=== PATIENT | female | born 1935 ===

== ENCOUNTER 2016-05-21 07:40 | Inpatient (IN) | payer MEDICAID, MEDICARE ==
[2016-05-21 07:45] VITALS: BMI 26.5
--- NOTE | 2016-05-21 08:21 | C.PDOC ---
History Of Present Illness 81-year-old female, presents to the emergency department accompanied by son who is acting as historian, with complaints of weakness. Son states that patient has chronic left sided hemiplegia, and post right knee repair last year. Son states that patient began having pain and discomfort after being on a flight from [place] for several hours. Patient is A&Ox3, and "seems more weak since her trip" as per son. No vomiting, slurred speech. All other Hx limited. Time Seen by Provider: 05/21/16 07:57 Chief Complaint (Nursing): Shortness Of Breath History Per: Family Current Symptoms Are (Timing): Still Present Past Medical History Reviewed: Historical Data, Nursing Documentation, Vital Signs Vital Signs: Last Vital Signs Temp 97.4 F L 05/21/16 08:06 Pulse 85 05/21/16 11:20 Resp 18 05/21/16 11:20 BP 104/65 05/21/16 11:20 Pulse Ox 100 05/21/16 15:41 Family History: States: Unknown Family Hx Review Of Systems Review Of Systems: ROS cannot be obtained secondary to pt's inabilty to answer questions. Constitutional: Positive for: Weakness Physical Exam - Physical Exam Appears: Non-toxic, No Acute Distress Skin: Warm, Dry, Other ( PRESSURE ULCER SACRUM STAGE 4, NO ACTIVE INFXN) Eye(s): bilateral: Normal Inspection, PERRL Nose: Normal Oral Mucosa: Moist Neck: Normal ROM Cardiovascular: Rhythm Regular Respiratory: No Accessory Muscle Use, No Rales, No Rhonchi, No Wheezing Neurological/Psych: Other (CHRONIC L HEMIPLEGIA; APPROPRIATE RESPONSE TO SON) ED Course And Treatment - Laboratory Results Result Diagrams: 05/21/16 08:35 05/21/16 08:35 ECG: Interpreted By Me ECG Rhythm: Sinus Rhythm ECG Interpretation: Normal Rate From EC O2 Sat by Pulse Oximetry: 100 Pulse Ox Interpretation: Normal - Radiology CXR: Interpreted by Me CXR Interpretation: Yes: No Acute Disease Reevaluation Time: 10:18 Reassessment Condition: Unchanged - Physician Consult Information Time Consulting Physician Contacted: 10:18 Physician Contacted: Epi Lindsey Disposition Counseled Patient/Family Regarding: Studies Performed, Diagnosis - Disposition Disposition: HOSPITALIZED Disposition Time: 10:19 Condition: STABLE - POA Present On Arrival: Poor Glycemic Control, Pressure Ulcer - Clinical Impression Clinical Impression: Chronic pain, Pressure ulcer, Weakness generalized - Scribe Statement The provider has reviewed the documentation as recorded by the Scribe Provider Attestation: Cassie Atkins All medical record entries made by the Scribe were at my direction and personally dictated by me. I have reviewed the chart and agree that the record accurately reflects my personal performance of the history, physical exam, medical decision making, and the department course for this patient. I have also personally directed, reviewed, and agree with the discharge instructions and disposition. Decision To Admit - Pt Status Changed To: Hospital Disposition Of: Observation - . Bed Request Type: Regular Admitting Physician: Epi Lindsey Patient Diagnosis: Chronic pain, Pressure ulcer, Weakness generalized
[2016-05-21] MEDS ORDERED: Sodium Chloride 0.9% 1,000 ML IV ONE (08:27)
[2016-05-21 08:39] LABS: BASO # 0.1 K/uL (0.0-0.2); BASO % 1.2 % (0.0-2.0); EOS # 0.4 K/uL (0.0-0.7); EOS % 3.6 % (0.0-4.0); HEMATOCRIT 40.9 % (34.0-47.0); LYMPH # 1.7 K/uL (1.0-4.3); LYMPH % 17.7 % (20.0-40.0); MEAN CORPUSCULAR HEMOGLOBIN 28.1 pg (27.0-31.0); MEAN CORPUSCULAR HGB CONC 32.7 g/dL (33.0-37.0); MEAN PLATELET VOLUME 7.1 fL (7.2-11.7); MONO # 0.9 K/uL (0.0-0.8); MONO % 8.9 % (0.0-10.0); WHITE BLOOD COUNT 9.7 K/uL (4.8-10.8)
[2016-05-21 08:51] LABS: VENOUS BLOOD GAS BASE EXCESS -0.2 mmol/L (0.0-2.0); VENOUS BLOOD GAS PCO2 47 mmHg (40-60); VENOUS BLOOD PH 7.35 (7.32-7.43)
[2016-05-21 09:05] LABS: CHLORIDE 103 mmol/L (98-107); SODIUM 142 mmol/L (132-148)
[2016-05-21 09:07] LABS: GFR AFRICAN-AMERICAN > 60
[2016-05-21 09:08] LABS: ALKALINE PHOSPHATASE 107 U/L (38-126); ALT/SGPT 10 U/L (9-52); AST/SGOT 33 U/L (14-36); BILIRUBIN,TOTAL 1.3 mg/dL (0.2-1.3); BLOOD UREA NITROGEN 11 mg/dL (7-17); CARBON DIOXIDE 24 mmol/L (22-30); GLUCOSE,RANDOM 92 mg/dL (65-105); TOTAL PROTEIN 7.5 g/dL (6.3-8.3)
--- NOTE | 2016-05-21 09:36 | CT ---
PROCEDURE: CT HEAD WITHOUT CONTRAST. HISTORY: AMS COMPARISON: None available. TECHNIQUE: Axial computed tomography images were obtained through the head/brain without intravenous contrast. Radiation dose: Total exam DLP = 883.50 MGy-cm. This CT exam was performed using one or more of the following dose reduction techniques: Automated exposure control, adjustment of the mA and/or kV according to patient size, and/or use of iterative reconstruction technique. FINDINGS: HEMORRHAGE: No intracranial hemorrhage. BRAIN: Diffuse atrophy with prominence of the ventricles and sulci noted. No mass effect or edema. Intracranial atherosclerotic calcifications. 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 Additional regions of scattered white matter hypodensities, which are nonspecific, but often seen with chronic microvascular ischemic disease. VENTRICLES: No hydrocephalus. CALVARIUM: Unremarkable. PARANASAL SINUSES: Unremarkable as visualized. No significant inflammatory changes. MASTOID AIR CELLS: Unremarkable as visualized. No inflammatory changes. OTHER FINDINGS: None. 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 Additional regions of scattered white matter hypodensities, which are nonspecific, but often seen with chronic microvascular ischemic disease. Please note that MRI with diffusion imaging is more sensitive in the detection of acute ischemic event. Generalized atrophy.
[2016-05-21] MEDS ORDERED: Sodium Chloride 0.9% 1,000 ML ONE (09:42)
[2016-05-21] MEDS ORDERED: Dextrose 50% SYRINGE Inj (50 ml) ONE (09:56)
[2016-05-21] MEDS ORDERED: Dextrose 50% SYRINGE Inj (50 ml) IV STA (10:03)
[2016-05-21] MEDS ORDERED: Dextrose 50% SYRINGE Inj (50 ml) IVP STA (10:07)
--- NOTE | 2016-05-21 10:09 | RAD ---
HISTORY: AMS COMPARISON: None available. TECHNIQUE: Chest, one view. FINDINGS: LUNGS: No focal consolidation. Please note that chest x-ray has limited sensitivity for the detection of pulmonary masses. PLEURA: No significant pleural effusion identified. No definite pneumothorax . CARDIOVASCULAR: Mild cardiomegaly. OSSEOUS STRUCTURES: Degenerative changes. VISUALIZED UPPER ABDOMEN: Unremarkable. OTHER FINDINGS: None. IMPRESSION: No focal consolidation, significant pleural effusion, or definite pneumothorax identified. Mild cardiomegaly.
[2016-05-21 11:44] LABS: RBC URINE 41 /hpf (0-3); URINE BACTERIA FEW (<OCC); URINE BILIRUBIN NEGATIVE (NEGATIVE); URINE COLOR Amber (YELLOW); URINE GLUCOSE (UA) 2+ mg/dL (Normal); URINE KETONE TRACE mg/dL (NEGATIVE); URINE LEUKOCYTE ESTERASE 3+ Leu/uL (Negative); URINE PROTEIN 1+ mg/dL (NEGATIVE); URINE UROBILINOGEN NORMAL mg/dL (0.2-1.0); WBC CLUMPS FEW /hpf; WBC URINE 3017 /hpf (0-5)
[2016-05-21 11:45] LABS: URINE BLOOD 1+ (NEGATIVE)
--- NOTE | 2016-05-21 15:49 | CP.PCM.HP ---
History of Present Illness - History of Present Illness History of Present Illness: 81-year-old female presented to the ED accompanied by son who is acting as historian, which complains of weakness. Son states that patient has chronic left-sided hemiplegia and a post right knee repair last year. Son states that patient began having pain and discomfort after being on a flight from [place] for several hours. Patient is active, alert and oriented to time place person, and "seems more weak since her trip" as per son. No vomiting, slurred speech. All other history limited. Present on Admission - Present on Admission Any Indicators Present on Admission: No Past Patient History - Infectious Disease Hx of Infectious Diseases: None - Past Medical History & Family History Past Medical History?: Yes - Past Social History Smoking Status: Never Smoked - CARDIAC Hx Hypertension: Yes - NEUROLOGICAL HX Cerebrovascular Accident: Yes (Stroke 2016) - MUSCULOSKELETAL/RHEUMATOLOGICAL Hx Falls: No - PSYCHIATRIC Hx Substance Use: No - SURGICAL HISTORY Hx Surgeries: Yes Other/Comment: left knee surgery with hardware, abd surgery unknown. - ANESTHESIA Hx Anesthesia: Yes Hx Anesthesia Reactions: No Hx Malignant Hyperthermia: No Meds Home Medications: Home Medication List Medication Instructions Recorded Confirmed Type Ascorbic Acid [Vitamin C 500 mg 500 mg PO DAILY tab 05/26/16 Rx Tab] Insulin Aspart, Recombinant 0 unit SC ACHS #0 unit 05/26/16 Rx [Novolog] Multivitamins [Hexavitamin] 1 tab PO DAILY tab 05/26/16 Rx Pantoprazole [Protonix EC Tab] 40 mg PO DAILY ect 05/26/16 Rx Vancomycin [Vancomycin Inj] 1 gm IVPB Q24H vial 05/26/16 Rx traMADol [Ultram] 50 mg PO Q6 PRN #0 tab 05/26/16 Rx Allergies/Adverse Reactions: Allergies Allergy/AdvReac Type Severity Reaction Status Date / Time No Known Allergies Allergy Verified 05/21/16 07:45 Results - Vital Signs Recent Vital Signs: Last Vital Signs Temp 97.4 F L 05/21/16 08:06 Pulse 85 05/21/16 11:20 Resp 18 05/21/16 11:20 BP 104/65 05/21/16 11:20 Pulse Ox 100 05/21/16 15:41 - Labs Result Diagrams: 05/24/16 13:52 05/26/16 05:58 Labs: Laboratory Results - last 24 hr 05/21/16 05/21/16 10:22 10:31 POC Glucose (mg/dL) 125 H Urine Color Nalini Urine Clarity Turbid Urine pH 6.0 Ur Specific [place] 1.017 Urine Protein 1+ H Urine Glucose (UA) 2+ H Urine Ketones Trace Urine Blood 1+ H Urine Nitrate Negative Urine Bilirubin Negative Urine Urobilinogen Normal Ur Leukocyte Esterase 3+ H Urine WBC (Auto) 3017 H Urine RBC (Auto) 41 H Urine WBC Clumps (Auto) Few H Ur Squamous Epith Cells 2 Urine Bacteria Few H Assessment & Plan (1) Chronic pain Status: Acute (2) Pressure ulcer Status: Acute (3) Weakness generalized Status: Acute - Assessment and Plan (Free Text) Plan: Consult neurology Consult pulmonology Lovenox Pipercillin Sod/tazobactam NovoLog Protonix
[2016-05-21] MEDS ORDERED: Pneumococcal 23-Valent Vaccine IM ONE (16:00)
[2016-05-21] MEDS: Piperacill/Tazo 3.375gm in Dex 50 ML IVPB SCH ×2 (16:50→21:49)
[2016-05-21] MEDS: (Novolog) Insulin Aspart, Recombinant 100 u/ml 10 ml vial SC SCH ×2 (17:10→22:14)
[2016-05-21] MEDS: Enoxaparin 40 mg Syringe SC SCH (17:48)
[2016-05-21 22:58] VITALS: RESP 20
[2016-05-22] MEDS: Piperacillin/Tazobact 3.375 gm 100 ML IVPB SCH ×4 (03:53→21:37)
[2016-05-22] MEDS: (Novolog) Insulin Aspart, Recombinant 100 u/ml 10 ml vial SC SCH ×4 (08:04→21:35)
--- NOTE | 2016-05-22 09:29 | CP.PCM.PN ---
Subjective - Date & Time of Evaluation Date of Evaluation: 05/22/16 Time of Evaluation: 06:00 - Subjective Subjective: generalised weakness Objective - Vital Signs/Intake and Output Vital Signs (last 24 hours): Temp Pulse Resp BP Pulse Ox 98.2 F 85 20 125/76 97 05/22/16 08:12 05/22/16 08:12 05/22/16 08:12 05/22/16 08:12 05/22/16 08:12 Intake and Output: 05/22/16 05/22/16 06:59 18:59 Intake Total 450 220 Balance 450 220 - Medications Medications: Current Medications Enoxaparin Sodium (Lovenox) 40 mg SC DAILY [facility] Last Admin: 05/21/16 17:48 Dose: 40 mg Piperacillin Sod/Tazobactam Sod (Zosyn 3.375 In Ns 100ml) 100 mls @ 100 mls/hr IVPB Q6H [facility] Last Admin: 05/22/16 03:53 Dose: 100 mls/hr Insulin Aspart (Novolog) 0 unit SC ACHS [facility] PRN Reason: Protocol Last Admin: 05/22/16 08:04 Dose: Not Given Pantoprazole Sodium (Protonix Ec Tab) 40 mg PO DAILY [facility] - Labs Labs: PT 11.3 SECONDS (9.7-12.2) 05/21/16 08:35 INR 1.0 05/21/16 08:35 APTT 29 SECONDS (21-34) 05/21/16 08:35 Assessment and Plan - Assessment and Plan (Free Text) Plan: current Meds: Enoxaparin Sodium Piperacillin Sod/Tazobactam Sod Insulin Aspart Pantoprazole f/u labs
[2016-05-22] MEDS: Enoxaparin 40 mg Syringe SC SCH (10:44)
[2016-05-22] MEDS: Pantoprazole 40 mg EC Tab PO SCH (10:44)
[2016-05-23] MEDS: Piperacillin/Tazobact 3.375 gm 100 ML IVPB SCH ×4 (04:18→10:39)
[2016-05-23] MEDS: (Novolog) Insulin Aspart, Recombinant 100 u/ml 10 ml vial SC SCH ×4 (08:09→23:19)
[2016-05-23] MEDS: Pantoprazole 40 mg EC Tab PO SCH (09:25)
[2016-05-23] MEDS: Enoxaparin 40 mg Syringe SC SCH ×2 (09:25→09:45)
--- NOTE | 2016-05-23 12:48 | CARD ---
APPROVED REPORT EKG Measurement Heart [id number] <Conclusion> Normal sinus rhythm Left axis deviation Cannot rule out Anterior infarct, age undetermined Abnormal ECG
--- NOTE | 2016-05-23 12:51 | CP.PCM.PN ---
Subjective - Date & Time of Evaluation Date of Evaluation: 05/23/16 Time of Evaluation: 09:20 - Subjective Subjective: clinically same Objective - Vital Signs/Intake and Output Vital Signs (last 24 hours): Temp Pulse Resp BP Pulse Ox 98 F 83 20 128/75 96 05/23/16 08:00 05/23/16 11:36 05/23/16 08:00 05/23/16 08:00 05/23/16 08:00 Intake and Output: 05/23/16 05/23/16 06:59 18:59 Intake Total 200 Balance 200 - Medications Medications: Current Medications Enoxaparin Sodium (Lovenox) 40 mg SC DAILY [facility] Last Admin: 05/23/16 09:45 Dose: Not Given Piperacillin Sod/Tazobactam Sod (Zosyn 3.375 In Ns 100ml) 100 mls @ 100 mls/hr IVPB Q6H [facility] Last Admin: 05/23/16 10:39 Dose: 100 mls/hr Insulin Aspart (Novolog) 0 unit SC ACHS [facility] PRN Reason: Protocol Last Admin: 05/23/16 11:54 Dose: Not Given Pantoprazole Sodium (Protonix Ec Tab) 40 mg PO DAILY [facility] Last Admin: 05/23/16 09:25 Dose: 40 mg - Labs Labs: PT 11.3 SECONDS (9.7-12.2) 05/21/16 08:35 INR 1.0 05/21/16 08:35 APTT 29 SECONDS (21-34) 05/21/16 08:35 - Constitutional Appears: Well - Head Exam Head Exam: ATRAUMATIC, NORMAL INSPECTION, NORMOCEPHALIC - Eye Exam Eye Exam: EOMI, Normal appearance, PERRL Pupil Exam: NORMAL ACCOMODATION, PERRL - ENT Exam ENT Exam: Mucous Membranes Moist, Normal Exam - Neck Exam Neck Exam: Full ROM, Normal Inspection. absent: Lymphadenopathy - Respiratory Exam Respiratory Exam: Decreased Breath Sounds - Cardiovascular Exam Cardiovascular Exam: REGULAR RHYTHM, +S1, +S2 - GI/Abdominal Exam GI & Abdominal Exam: Soft, Diminished Bowel Sounds - Rectal Exam Rectal Exam: Deferred Assessment and Plan - Assessment and Plan (Free Text) Plan: head CT shows no hemorrhage continue Mx as ordered
[2016-05-23] MEDS: Piperacillin/Tazobact 3.375 GM in Sodium Chloride 0.9% 100 ML IVPB SCH (21:12)
[2016-05-24] MEDS: Piperacillin/Tazobact 3.375 GM in Sodium Chloride 0.9% 100 ML IVPB SCH ×4 (03:16→22:11)
[2016-05-24] MEDS: (Novolog) Insulin Aspart, Recombinant 100 u/ml 10 ml vial SC SCH ×4 (07:30→22:12)
[2016-05-24] MEDS: Pantoprazole 40 mg EC Tab PO SCH (09:28)
[2016-05-24] MEDS: Enoxaparin 40 mg Syringe SC SCH (09:28)
--- NOTE | 2016-05-24 10:56 | CP.PCM.PN ---
Subjective - Date & Time of Evaluation Date of Evaluation: 05/24/16 Time of Evaluation: 09:40 - Subjective Subjective: clinically same Objective - Vital Signs/Intake and Output Vital Signs (last 24 hours): Temp Pulse Resp BP Pulse Ox 97.8 F 86 20 132/81 95 05/23/16 23:30 05/24/16 08:47 05/23/16 23:30 05/23/16 23:30 05/23/16 23:30 Intake and Output: 05/24/16 05/24/16 06:59 18:59 Intake Total 380 Balance 380 - Medications Medications: Current Medications Ascorbic Acid (Vitamin C 500 Mg Tab) 500 mg PO DAILY [facility] Enoxaparin Sodium (Lovenox) 40 mg SC DAILY [facility] Last Admin: 05/24/16 09:28 Dose: 40 mg Piperacillin Sod/Tazobactam (Sod 3.375 gm/ Sodium Chloride) 100 mls @ 100 mls/ hr IVPB Q6H [facility] Last Admin: 05/24/16 09:28 Dose: 100 mls/hr Vancomycin/Sodium Chloride (Vancocin) 200 mls @ 133.333 mls/hr IVPB Q24H [facility] Insulin Aspart (Novolog) 0 unit SC ACHS [facility] PRN Reason: Protocol Last Admin: 05/24/16 07:30 Dose: Not Given Multivitamins (Hexavitamin) 1 tab PO DAILY [facility] Pantoprazole Sodium (Protonix Ec Tab) 40 mg PO DAILY [facility] Last Admin: 05/24/16 09:28 Dose: 40 mg - Labs Labs: PT 11.3 SECONDS (9.7-12.2) 05/21/16 08:35 INR 1.0 05/21/16 08:35 APTT 29 SECONDS (21-34) 05/21/16 08:35 - Constitutional Appears: Well - Head Exam Head Exam: ATRAUMATIC, NORMAL INSPECTION, NORMOCEPHALIC - Eye Exam Eye Exam: EOMI, Normal appearance, PERRL Pupil Exam: NORMAL ACCOMODATION, PERRL - ENT Exam ENT Exam: Mucous Membranes Moist, Normal Exam - Neck Exam Neck Exam: Full ROM, Normal Inspection. absent: Lymphadenopathy - Respiratory Exam Respiratory Exam: Decreased Breath Sounds - Cardiovascular Exam Cardiovascular Exam: REGULAR RHYTHM, +S1, +S2 - GI/Abdominal Exam GI & Abdominal Exam: Soft, Diminished Bowel Sounds - Rectal Exam Rectal Exam: Deferred Assessment and Plan - Assessment and Plan (Free Text) Plan: continue Mx as ordered
[2016-05-24] MEDS: Vancomycin 1 gm/NS 200 ml 200 ML IVPB SCH (12:23)
[2016-05-24] MEDS: Multiple Vitamins Tab PO SCH (13:11)
[2016-05-24 14:01] LABS: BASO # 0.1 K/uL (0.0-0.2); BASO % 0.9 % (0.0-2.0); EOS # 0.2 K/uL (0.0-0.7); EOS % 2.1 % (0.0-4.0); HEMATOCRIT 37.4 % (34.0-47.0); LYMPH # 1.8 K/uL (1.0-4.3); LYMPH % 18.5 % (20.0-40.0); MEAN CELL VOLUME 85.9 fL (81.0-99.0); MEAN CORPUSCULAR HEMOGLOBIN 28.2 pg (27.0-31.0); MEAN CORPUSCULAR HGB CONC 32.8 g/dL (33.0-37.0); MEAN PLATELET VOLUME 7.5 fL (7.2-11.7); MONO # 0.7 K/uL (0.0-0.8); MONO % 6.9 % (0.0-10.0); RED CELL DISTRIBUTION WIDTH 17.7 % (11.5-14.5); WHITE BLOOD COUNT 9.9 K/uL (4.8-10.8)
[2016-05-24 14:12] LABS: CHLORIDE 108 mmol/L (98-107)
[2016-05-24 14:13] LABS: POTASSIUM 3.3 mmol/L (3.6-5.2); SODIUM 143 mmol/L (132-148)
[2016-05-24 14:15] LABS: ALB/GLOB RATIO 0.8 (1.0-2.1); ALKALINE PHOSPHATASE 84 U/L (38-126); AST/SGOT 25 U/L (14-36); BLOOD UREA NITROGEN 8 mg/dL (7-17); CARBON DIOXIDE 24 mmol/L (22-30); GFR AFRICAN-AMERICAN > 60; GLUCOSE,RANDOM 91 mg/dL (65-105); TOTAL PROTEIN 6.3 g/dL (6.3-8.3)
[2016-05-24 14:16] LABS: ALT/SGPT 15 U/L (9-52); CALCIUM 8.6 mg/dl (8.6-10.4)
[2016-05-24] MEDS ORDERED: Potassium Chloride 20 mEq/15 ml LIQ UD PO ONE ×2 (15:45→17:30)
[2016-05-25] MEDS: Piperacillin/Tazobact 3.375 GM in Sodium Chloride 0.9% 100 ML IVPB SCH ×4 (03:04→21:30)
[2016-05-25] MEDS: (Novolog) Insulin Aspart, Recombinant 100 u/ml 10 ml vial SC SCH ×4 (08:42→21:29)
[2016-05-25] MEDS: Multiple Vitamins Tab PO SCH (11:30)
[2016-05-25] MEDS: Pantoprazole 40 mg EC Tab PO SCH (11:31)
[2016-05-25] MEDS: Vancomycin 1 gm/NS 200 ml 200 ML IVPB SCH (11:32)
[2016-05-25] MEDS: Enoxaparin 40 mg Syringe SC SCH (11:32)
--- NOTE | 2016-05-25 14:22 | RAD ---
HISTORY: verify right PICC COMPARISON: 05/21/2016 FINDINGS: LUNGS: Hazy opacity in the lung bases. Mild pulmonary vascular congestion. PLEURA: No significant pleural effusion identified, no pneumothorax apparent.Biapical pleural parenchymal thickening noted. CARDIOVASCULAR: Normal. OSSEOUS STRUCTURES: The osseous structures demonstrate degenerative changes. VISUALIZED UPPER ABDOMEN: Upper abdomen is suboptimally evaluated. OTHER FINDINGS: Introduction of right-sided PICC with the distal tip of the catheter overlying the projection of the SVC/right atrial junction. IMPRESSION: Introduction of right-sided PICC with the distal tip of the catheter overlying the projection of the SVC/right atrial junction.
--- NOTE | 2016-05-25 18:44 | CP.PCM.PN ---
Subjective - Date & Time of Evaluation Date of Evaluation: 05/25/16 Time of Evaluation: 09:40 - Subjective Subjective: clinically same Objective - Vital Signs/Intake and Output Vital Signs (last 24 hours): Temp Pulse Resp BP Pulse Ox 98 F 82 20 144/84 96 05/25/16 16:00 05/25/16 16:00 05/25/16 16:00 05/25/16 16:00 05/25/16 16:00 Intake and Output: 05/25/16 05/25/16 06:59 18:59 Intake Total 100 780 Balance 100 780 - Medications Medications: Current Medications Ascorbic Acid (Vitamin C 500 Mg Tab) 500 mg PO DAILY [facility] Last Admin: 05/25/16 11:31 Dose: 500 mg Enoxaparin Sodium (Lovenox) 40 mg SC DAILY [facility] Last Admin: 05/25/16 11:32 Dose: 40 mg Piperacillin Sod/Tazobactam (Sod 3.375 gm/ Sodium Chloride) 100 mls @ 100 mls/ hr IVPB Q6H [facility] Last Admin: 05/25/16 15:45 Dose: 100 mls/hr Vancomycin/Sodium Chloride (Vancocin) 200 mls @ 133.333 mls/hr IVPB Q24H [facility] Last Admin: 05/25/16 11:32 Dose: 133.333 mls/hr Insulin Aspart (Novolog) 0 unit SC ACHS [facility] PRN Reason: Protocol Last Admin: 05/25/16 16:30 Dose: Not Given Multivitamins (Hexavitamin) 1 tab PO DAILY [facility] Last Admin: 05/25/16 11:30 Dose: 1 tab Pantoprazole Sodium (Protonix Ec Tab) 40 mg PO DAILY [facility] Last Admin: 05/25/16 11:31 Dose: 40 mg Tramadol HCl (Ultram) 50 mg PO Q6 PRN PRN Reason: Pain, moderate (4-7) Last Admin: 05/25/16 13:51 Dose: 50 mg - Labs Labs: 05/24/16 13:52 05/24/16 13:52 PT 11.3 SECONDS (9.7-12.2) 05/21/16 08:35 INR 1.0 05/21/16 08:35 APTT 29 SECONDS (21-34) 05/21/16 08:35 - Constitutional Appears: Well - Head Exam Head Exam: ATRAUMATIC, NORMAL INSPECTION, NORMOCEPHALIC - Eye Exam Eye Exam: EOMI, Normal appearance, PERRL Pupil Exam: NORMAL ACCOMODATION, PERRL - ENT Exam ENT Exam: Mucous Membranes Moist, Normal Exam - Neck Exam Neck Exam: Full ROM, Normal Inspection. absent: Lymphadenopathy - Respiratory Exam Respiratory Exam: Decreased Breath Sounds - GI/Abdominal Exam GI & Abdominal Exam: Soft, Diminished Bowel Sounds - Rectal Exam Rectal Exam: Deferred Assessment and Plan (1) Chronic pain Status: Acute (2) Pressure ulcer Status: Acute (3) Weakness generalized Status: Acute - Assessment and Plan (Free Text) Plan: tramadol added continue other meds as ordered
[2016-05-26] MEDS: Piperacillin/Tazobact 3.375 GM in Sodium Chloride 0.9% 100 ML IVPB SCH ×3 (02:54→14:47)
[2016-05-26 06:21] LABS: CHLORIDE 109 mmol/L (98-107); POTASSIUM 3.3 mmol/L (3.6-5.2); SODIUM 142 mmol/L (132-148)
[2016-05-26 06:24] LABS: CARBON DIOXIDE 21 mmol/L (22-30); GFR AFRICAN-AMERICAN > 60
[2016-05-26 06:25] LABS: BLOOD UREA NITROGEN 6 mg/dL (7-17); CALCIUM 8.3 mg/dl (8.6-10.4); GLUCOSE,RANDOM 82 mg/dL (65-105)
[2016-05-26] MEDS: (Novolog) Insulin Aspart, Recombinant 100 u/ml 10 ml vial SC SCH ×3 (08:17→16:43)
[2016-05-26 09:39] VITALS: O2SAT 96
[2016-05-26] MEDS: Enoxaparin 40 mg Syringe SC SCH (10:49)
[2016-05-26] MEDS: Multiple Vitamins Tab PO SCH (10:50)
[2016-05-26] MEDS: Pantoprazole 40 mg EC Tab PO SCH (10:50)
[2016-05-26] MEDS ORDERED: Potassium Chloride 20 mEq/15 ml LIQ UD PO ONE (11:15)
--- NOTE | 2016-05-26 17:04 | CP.PCM.PN ---
Subjective - Date & Time of Evaluation Date of Evaluation: 05/26/16 Time of Evaluation: 10:00 - Subjective Subjective: clinically same Objective - Vital Signs/Intake and Output Vital Signs (last 24 hours): Temp Pulse Resp BP Pulse Ox 97.5 F L 80 20 135/76 96 05/26/16 08:00 05/26/16 08:00 05/26/16 08:00 05/26/16 08:00 05/26/16 08:00 Intake and Output: 05/26/16 05/26/16 06:59 18:59 Intake Total 600 Balance 600 - Medications Medications: Current Medications Ascorbic Acid (Vitamin C 500 Mg Tab) 500 mg PO DAILY [facility] Last Admin: 05/26/16 10:50 Dose: 500 mg Enoxaparin Sodium (Lovenox) 40 mg SC DAILY [facility] Last Admin: 05/26/16 10:49 Dose: 40 mg Piperacillin Sod/Tazobactam (Sod 3.375 gm/ Sodium Chloride) 100 mls @ 100 mls/ hr IVPB Q6H [facility] Last Admin: 05/26/16 14:47 Dose: 100 mls/hr Vancomycin HCl 1 gm/ Sodium (Chloride) 250 mls @ 166.667 mls/hr IVPB Q24H [facility] Last Admin: 05/26/16 13:18 Dose: 166.667 mls/hr Insulin Aspart (Novolog) 0 unit SC ACHS [facility] PRN Reason: Protocol Last Admin: 05/26/16 16:43 Dose: Not Given Multivitamins (Hexavitamin) 1 tab PO DAILY [facility] Last Admin: 05/26/16 10:50 Dose: 1 tab Pantoprazole Sodium (Protonix Ec Tab) 40 mg PO DAILY [facility] Last Admin: 05/26/16 10:50 Dose: 40 mg Tramadol HCl (Ultram) 50 mg PO Q6 PRN PRN Reason: Pain, moderate (4-7) Last Admin: 05/25/16 13:51 Dose: 50 mg - Labs Labs: 05/24/16 13:52 05/26/16 05:58 PT 11.3 SECONDS (9.7-12.2) 05/21/16 08:35 INR 1.0 05/21/16 08:35 APTT 29 SECONDS (21-34) 05/21/16 08:35 - Constitutional Appears: Well - Head Exam Head Exam: ATRAUMATIC, NORMAL INSPECTION, NORMOCEPHALIC - Eye Exam Eye Exam: EOMI, Normal appearance, PERRL Pupil Exam: NORMAL ACCOMODATION, PERRL - ENT Exam ENT Exam: Mucous Membranes Moist, Normal Exam - Neck Exam Neck Exam: Full ROM, Normal Inspection. absent: Lymphadenopathy - Respiratory Exam Respiratory Exam: Decreased Breath Sounds - Cardiovascular Exam Cardiovascular Exam: REGULAR RHYTHM, +S1, +S2 - GI/Abdominal Exam GI & Abdominal Exam: Soft, Diminished Bowel Sounds - Rectal Exam Rectal Exam: Deferred Assessment and Plan (1) Chronic pain Status: Acute (2) Pressure ulcer Status: Acute (3) Weakness generalized Status: Acute - Assessment and Plan (Free Text) Plan: continue Mx as ordered
[2016-05-26 17:08] VITALS: BP 147/84; PULSE 81; TEMP 98
--- NOTE | 2016-05-26 22:13 | CP.PCM.PN ---
Subjective - Date & Time of Evaluation Date of Evaluation: 05/26/16 Time of Evaluation: 14:00 - Subjective Subjective: for discharge today no new complaints pt pain controlled Objective - Vital Signs/Intake and Output Vital Signs (last 24 hours): Temp Pulse Resp BP Pulse Ox 98.0 F 81 20 147/84 96 05/26/16 16:00 05/26/16 16:00 05/26/16 16:00 05/26/16 16:00 05/26/16 16:00 - Labs Labs: 05/24/16 13:52 05/26/16 05:58 PT 11.3 SECONDS (9.7-12.2) 05/21/16 08:35 INR 1.0 05/21/16 08:35 APTT 29 SECONDS (21-34) 05/21/16 08:35 - Constitutional Appears: Well - Head Exam Head Exam: ATRAUMATIC, NORMAL INSPECTION, NORMOCEPHALIC - Eye Exam Eye Exam: EOMI, Normal appearance, PERRL - ENT Exam ENT Exam: Mucous Membranes Moist, Normal Exam - Neck Exam Neck Exam: Full ROM, Normal Inspection. absent: Lymphadenopathy - Respiratory Exam Respiratory Exam: Decreased Breath Sounds, Clear to Ausculation Bilateral, NORMAL BREATHING PATTERN - Cardiovascular Exam Cardiovascular Exam: REGULAR RHYTHM, +S1, +S2 - GI/Abdominal Exam GI & Abdominal Exam: Soft, Diminished Bowel Sounds - Rectal Exam Rectal Exam: Deferred Assessment and Plan (1) Chronic pain Status: Acute (2) Pressure ulcer Status: Acute (3) Weakness generalized Status: Acute - Assessment and Plan (Free Text) Plan: ready for discharge pain controlled
--- NOTE | 2016-05-30 14:25 | PQF CVATIA ---
This form is a permanent part of the medical record Dr. Lindsey, Please clarify if this patient has an ACUTE CVA. According to ED note patient has chronic hemiparesis. NO MRI was done and CT of head shows only Encephalomalacia. Also showed chronic microvascular ischemia. Thank you, Clarification of your documentation is requested to better reflect the severity of illness and intensity of treatment of your patient. Indicators present: [] Altered mental status [] Aphasia [] Dysphagia [] Dysphasia [] Facial droop/numbness [] Gait disturbance [] Hemiparesis/plegia [] Speech impairment [] Weakness [] Neuro Consult [] CT/MRI Findings [] Other: [] Location in the medical record that reflects the above clinical findings: [] Treatment Provided: [] PHYSICIAN'S RESPONSE Based on your medical judgment of the clinical indicators outlined above, are you treating this patient for a known or suspected: [] Acute Cerebrovascular Accident (CVA) Please specify type i.e.; embolic, hemorrhagic, ischemic. Please specify the artery involved if known. [] Transient Ischemic Accident (TIA) [] Prolonged reversible ischemic neurological disorder [] Other, please indicate: [] [] If unable to determine, please check the box, sign and date. Present On Admission (POA) Indicator: [] Present at the time of admission [] Not present at the time of admission [] Clinically Undetermined In responding to this query, please exercise your independent professional judgment. The fact that a question is asked does not imply that any particular answer is desired or expected. Thank you for your clarification on this documentation. If you have any questions please call:[ ] * Thank you, [ ] manager perioperative [email or web address]
== END 2016-05-26 17:15 | DRG 592 ==
LOC: C.ER 07:40 → C.9E 10:20 → C.3T 11:09 → C.5T 05-22 20:50 → OBSVTOIN 05-23 14:05
PROVIDERS: ADMIT Internal Medicine Nephrology; ATTEND Internal Medicine Nephrology
PROC: 02HV33Z Insertion of Infusion Device into Superior Vena Cava, Percutaneous Approach (ICD-10-PCS; principal; 2016-05-25)
PROC: B548ZZA Ultrasonography of Superior Vena Cava, Guidance (ICD-10-PCS; 2016-05-25)
DX: L89.154 Pressure ulcer of sacral region, stage 4 (principal); G93.89 Other specified disorders of brain; I69.354 Hemiplegia and hemiparesis following cerebral infarction affecting left non-dominant side; G89.29 Other chronic pain; M62.81 Muscle weakness (generalized); B95.61 Methicillin susceptible Staphylococcus aureus infection as the cause of diseases classified elsewhere; I10 Essential (primary) hypertension; R53.81 Other malaise